=== PATIENT | female | born 1935 | race Caucasian/White ===

== ENCOUNTER 2017-10-16 11:17 | Emergency (ER) | payer MEDICARE ==
[~2017-10-16] VITALS: Ht 167.6 cm; Wt 59.0 kg
[~2017-10-16 11:17] MED LIST: AMIT25; AMIT50 PO; ASPI81CH PO; BACL10 PO; CARB50 PO; CELE200 PO; CIPR250 PO; CIPR500 PO; ESTR.75; FERSU220EL PO; HTN MEDICATION; HYDR1TAB94 PO; ISOMON20 PO; LEVOTHYROXINE PO; LEVSOD50 PO; LISI5 PO; NEBI5 PO; OXYB5 PO; PHENA200 PO; PRAV20 PO; THIA100 PO; VENL37.5ER PO; VITAMIN C PO; [UNRECOGNIZED DRUG - OTHER] PO
== END 2017-10-16 13:49 | disposition home or self-care (01) ==
LOC: ER 11:17
DX: S00.03XA Contusion of scalp, initial encounter (principal); S70.02XA Contusion of left hip, initial encounter; I48.91 Unspecified atrial fibrillation; Z86.73 Personal history of transient ischemic attack (TIA), and cerebral infarction without residual deficits; I10 Essential (primary) hypertension; Z88.8 Allergy status to other drugs, medicaments and biological substances; Z88.1 Allergy status to other antibiotic agents; Z91.018 Allergy to other foods; Z79.899 Other long term (current) drug therapy; Z79.82 Long term (current) use of aspirin; W01.198A Fall on same level from slipping, tripping and stumbling with subsequent striking against other object, initial encounter
CPT/HCPCS: 70450; 99284

== ENCOUNTER 2018-04-09 23:03 | Emergency (ER) | payer MEDICARE ==
[~2018-04-09] VITALS: Ht 167.6 cm; Wt 61.2 kg
[2018-04-10 00:40] LABS: Calcium, Ionized (POC) 1.09 mmol/L (1.10-1.46); Chloride (POC) 98 mmol/L (98-108); Creatinine (POC) 1.2 mg/dL (0.6-1.0); Glucose (ISTAT POC) 113 mg/dL (70-99); Hemoglobin (POC) 10.2 g/dL (12.0-16.0); Sodium (POC) 134 mmol/L (135-148); Total CO2 (POC) 27 mmol/L (21-32)
== END 2018-04-10 01:37 | disposition home or self-care (01) ==
LOC: ER 23:03
PROVIDERS: Emergency Medicine
DX: M47.892 Other spondylosis, cervical region (principal); M50.30 Other cervical disc degeneration, unspecified cervical region; E78.5 Hyperlipidemia, unspecified; I10 Essential (primary) hypertension; E03.9 Hypothyroidism, unspecified; F32.9 Major depressive disorder, single episode, unspecified; Z91.018 Allergy to other foods; Z88.1 Allergy status to other antibiotic agents; Z91.013 Allergy to seafood; Z79.899 Other long term (current) drug therapy; Z79.82 Long term (current) use of aspirin
CPT/HCPCS: 36415; 72040; 80047; 85014; 93005; 93010; 96360; 99284-25; J7030

== ENCOUNTER 2018-05-01 08:11 | Emergency (ER) | payer MEDICARE ==
[~2018-05-01] VITALS: Ht 167.6 cm; Wt 61.2 kg
[2018-05-01] MEDS ORDERED: Norco 5-325 Ta1 EACH PO (11:50)
[2018-05-01] MEDS ORDERED: LIDO700A20 TOP (11:50)
== END 2018-05-01 13:17 | disposition home or self-care (01) ==
LOC: ER 08:11
DX: M25.552 Pain in left hip (principal); Z88.1 Allergy status to other antibiotic agents; Z91.018 Allergy to other foods; Z91.013 Allergy to seafood; Z79.899 Other long term (current) drug therapy; Z79.82 Long term (current) use of aspirin; I10 Essential (primary) hypertension
CPT/HCPCS: 73502; 73552; 99283-25

== ENCOUNTER → 2020-02-17 | Outpatient (CLI) | payer MEDICARE ==
[~2020-02-17] MED LIST changes: +LIDO700A20 TOP; +Norco 5-325 Ta1 EACH PO
== END ==
LOC: LAB EV 14:18 → LAB SHORT 14:18
DX: N39.0 Urinary tract infection, site not specified (principal)
CPT/HCPCS: 87077; 87086; 87147; 87186

== ENCOUNTER → 2020-07-19 | Outpatient (CLI) | payer MEDICARE | END | disposition home or self-care (01) | LOC: PLD 15:36 → LAB SHORT 15:36 | DX: N39.0 Urinary tract infection, site not specified (principal) | CPT/HCPCS: 87077; 87086; 87186 ==

== ENCOUNTER → 2021-05-21 | Outpatient (CLI) | payer MEDICARE ==
[~2021-05-21] MED LIST changes: +AMLODIPINE BESYL5 MG PO; +ASCO500 PO; -ASPI81CH PO; +Aspir 8181 MG PO; +CEPH500 PO; +METO50ER PO; +SYNTHROID PO
== END | disposition home or self-care (01) ==
LOC: LAB 14:51 → LAB SHORT 14:51
DX: N39.0 Urinary tract infection, site not specified (principal)
CPT/HCPCS: 87077; 87086; 87186

== ENCOUNTER 2021-05-26 13:23 | Inpatient (IN) | payer MEDICARE ==
[~2021-05-26] VITALS: Ht 165.1 cm; Wt 57.0 kg
[~2021-05-26 13:23] MED LIST changes: -AMLODIPINE BESYL5 MG PO; -ASCO500 PO; -CEPH500 PO; -METO50ER PO; -SYNTHROID PO
[2021-05-26 14:31] LABS: BASOPHILS ABSOLUTE AUTO 0.19 K/mm3 (0.00-0.23); BASOPHILS PERCENT AUTO 1 % (0-2); EOSINOPHILS ABSOLUTE AUTO 0.03 K/mm3 (0.00-0.68); EOSINOPHILS PERCENT AUTO 0 % (0-6); Hematocrit 34.7 % (33.0-51.0); Hemoglobin 11.6 g/dL (11.5-16.0); IMMATURE GRAN ABSOLUTE AUTO 0.21 K/mm3 (0.00-0.10); IMMATURE GRAN PERCENT AUTO 1 % (0-1); LYMPHOCYTES ABSOLUTE AUTO 0.45 K/mm3 (0.84-5.20); LYMPHOCYTES PERCENT AUTO 2 % (21-46); MONOCYTES ABSOLUTE AUTO 0.56 K/mm3 (0.16-1.47); MONOCYTES PERCENT AUTO 3 % (4-13); Mean Corpuscular HGB 31.9 pg (26.0-34.0); Mean Corpuscular HGB Conc 33.4 g/dL (31.5-36.5); Mean Corpuscular Volume 95 fL (80-100); Mean Platelet Volume 11.9 fL (9.1-12.4); NEUTROPHILS ABSOLUTE AUTO 18.08 K/mm3 (1.96-9.15); NEUTROPHILS PERCENT AUTO 93 % (41-73); Platelet Count 320 K/mm3 (150-400); RDW Coefficient Variation 14.3 % (11.7-14.2); RDW Standard Deviation 50.4 fL (35.1-46.3); Red Blood Cell Count 3.64 M/mm3 (3.80-5.20); White Blood Cell Count 19.52 K/mm3 (4.00-11.30)
[2021-05-26 14:49] LABS: Bun/Creatinine Ratio 14.9 (12.0-20.0); Calcium, Blood 9.2 mg/dL (8.5-10.1); Creatinine, Blood 1.48 mg/dL (0.40-1.00); Potassium, Blood 4.8 mmol/L (3.5-5.5)
[2021-05-26 15:26] LABS: SARS-Cov-2 (COVID-19) PCR, MMC NEGATIVE (NEGATIVE)
[2021-05-26 15:45] LABS: Source, Urine Clean Catch
[2021-05-26 16:01] LABS: Appearance, Urine Clear (Clear); Bilirubin, Urine Neg (Neg); Blood, Urine Neg (Neg); Color, Urine Yellow (P-Yellow); Glucose Qualitative, Urine Neg (Neg); Ketones, Urine Neg (Neg); Leukocyte Esterase, Urine 2+ (Neg); Nitrite, Urine Neg (Neg); Protein, Urine 2+ (Neg); Specific Gravity, Urine 1.015 (1.003-1.022); Urobilinogen, Urine NORM (Normal)
[2021-05-26 16:58] LABS: Bacteria Few /hpf; Red Blood Cells, Urine 0-2 /hpf (0-2); Squamous Epithelial Cells Few /hpf (Few); Transitional Epithelial Cells Few /hpf (0-Rare); White Blood Cells, Urine 25-50 /hpf (0-5); Yeast/Fungi Urine Few /hpf
[2021-05-26] MEDS ORDERED: SYNTHROID PO (18:54)
[2021-05-26] MEDS ORDERED: METO50ER PO (18:54)
[2021-05-26] MEDS ORDERED: AMLODIPINE BESYL5 MG PO (18:54)
[2021-05-26] MEDS ORDERED: ASCO500 PO (18:55)
--- NOTE | 2021-05-26 23:00 | NUR ---
ADMISSION NOTE: RECEIVED PT FROM ER AAOX3. SHE DENIES ANY DISCOMFORT. RESP UNLABORED. PT C/O OF WEAKNESS. PLACED ON MONITOR SR. ORIENTED TO CALL LIGHT, ROOM, AND SURROUNDINGS. PO FLUIDS GIVEN AND TOLERATED WELL. NO N/V. SAFETY MEASURES IMPLEMENTED AND MAINTAINED. WILL CONTINUE TO MONITOR.
--- NOTE | 2021-05-27 04:52 | NUR ---
PT SLEPT WITHOUT DISTRESS. IVF INFUSING. SHE DENIES PAIN, NAUSEA, OR VOMITTING. PO FLUIDS GIVEN AND TOLERATED WELL. SAFETY PRECAUTIONS MAINTAINED. ATTENDS IN PLACE.
[2021-05-27] MEDS ORDERED: CEPH500 PO (13:57)
--- NOTE | 2021-05-27 17:12 | NUR ---
PT DISCHARGED WITH [id number] VIA WHEELCHAIR [place], BELONGINGS SENT HOME. PRIVATE CAR TO [place] TO HOME. PT AMBULATES TO W/[facility].
== END 2021-05-27 15:48 | disposition home or self-care (01) | DRG 872 ==
LOC: ER 13:23 → MEDS 18:29
PROVIDERS: Student in an Organized Health Care Education/Training Program; ADMIT Internal Medicine
DX: A41.9 Sepsis, unspecified organism (principal); N17.9 Acute kidney failure, unspecified; N12 Tubulo-interstitial nephritis, not specified as acute or chronic; E87.1 Hypo-osmolality and hyponatremia; Z20.822 Contact with and (suspected) exposure to COVID-19; I12.9 Hypertensive chronic kidney disease with stage 1 through stage 4 chronic kidney disease, or unspecified chronic kidney disease; E03.9 Hypothyroidism, unspecified; K90.0 Celiac disease; N18.30 Chronic kidney disease, stage 3 unspecified; E11.22 Type 2 diabetes mellitus with diabetic chronic kidney disease; E78.00 Pure hypercholesterolemia, unspecified; Z91.018 Allergy to other foods; Z88.0 Allergy status to penicillin; Z88.8 Allergy status to other drugs, medicaments and biological substances; Z90.49 Acquired absence of other specified parts of digestive tract; Z90.89 Acquired absence of other organs; Z90.710 Acquired absence of both cervix and uterus; Z90.722 Acquired absence of ovaries, bilateral; Z79.82 Long term (current) use of aspirin; Z79.899 Other long term (current) drug therapy
CPT/HCPCS: 36415; 74177; 80048; 81001; 82947; 83605; 83690; 83735; 85025; 87040; 93005; 93010; 96365; 99285-25; A9270; J0696; J1650; J7030; Q9967; U0004

== ENCOUNTER → 2021-10-12 | Outpatient (CLI) | payer OTHER ==
[~2021-10-12] MED LIST changes: +AMLODIPINE BESYL5 MG PO; +ASCO500 PO; +CEPH500 PO; +METO50ER PO; +SYNTHROID PO
== END | disposition home or self-care (01) ==
LOC: LAB 10:44 → LAB SHORT 10:44
DX: N39.0 Urinary tract infection, site not specified (principal)
CPT/HCPCS: 87077; 87086; 87186

== ENCOUNTER 2022-08-30 02:20 | Emergency (ER) | payer OTHER ==
[~2022-08-30] VITALS: Ht 165.1 cm; Wt 55.3 kg
[~2022-08-30 02:20] MED LIST changes: +AMLO5 PO; +CELEBREX200 MG PO; +HYDROCODONE-AC1 EA10 PO; +LEVSOD25 PO; +MULVITA PO; +Sprycel100 MG PO; +Vitamin B-12100 MCG PO; +XARELTO20 MG PO
[2022-08-30 04:05] LABS: Hematocrit 26.2 % (33.0-51.0); Hemoglobin 8.7 g/dL (11.5-16.0); Mean Corpuscular HGB 31.5 pg (26.0-34.0); Mean Corpuscular HGB Conc 33.2 g/dL (31.5-36.5); Mean Corpuscular Volume 95 fL (80-100); Mean Platelet Volume 10.6 fL (9.1-12.4); Platelet Count 134 K/mm3 (150-400); RDW Coefficient Variation 15.9 % (11.7-14.2); RDW Standard Deviation 53.7 fL (35.1-46.3); Red Blood Cell Count 2.76 M/mm3 (3.80-5.20); White Blood Cell Count 3.42 K/mm3 (4.00-11.30)
[2022-08-30 06:24] LABS: Bun/Creatinine Ratio 16.8 (12.0-20.0); Calcium, Blood 9.1 mg/dL (8.5-10.1); Creatinine, Blood 1.01 mg/dL (0.40-1.00); Magnesium, Blood 2.3 mg/dL (1.6-2.4); Potassium, Blood 3.7 mmol/L (3.5-5.5); Thyroid Stimulating Hormone 3.11 uIU/mL (0.360-4.800)
== END 2022-08-30 06:07 | disposition home or self-care (01) ==
LOC: ER 02:20
PROVIDERS: Student in an Organized Health Care Education/Training Program
DX: R51.9 Headache, unspecified (principal); R00.2 Palpitations; D64.9 Anemia, unspecified; F41.9 Anxiety disorder, unspecified; I12.9 Hypertensive chronic kidney disease with stage 1 through stage 4 chronic kidney disease, or unspecified chronic kidney disease; N18.30 Chronic kidney disease, stage 3 unspecified; Z88.1 Allergy status to other antibiotic agents; Z91.018 Allergy to other foods; Z79.899 Other long term (current) drug therapy; Z79.01 Long term (current) use of anticoagulants
CPT/HCPCS: 70450; 80048; 83735; 84443; 85027; A9270; J2765

== ENCOUNTER → 2022-09-01 | Outpatient (CLI) | payer OTHER | LOC: LAB SHORT 07:37 → PLD 07:37 | DX: D49.2 Neoplasm of unspecified behavior of bone, soft tissue, and skin (principal) | CPT/HCPCS: 88305 ==

== ENCOUNTER 2023-02-22 05:01 | Emergency (ER) | payer MEDICARE ==
[~2023-02-22] VITALS: Ht 165.1 cm; Wt 54.4 kg
[~2023-02-22 05:01] MED LIST changes: +AZIT250 PO; +BENZONATATE100 MG PO; +Cipro500 MG PO; +LOSA25 PO; +MIRALAX17 GM PO
[2023-02-22 08:10] LABS: Source, Urine Straight Cath
[2023-02-22 08:30] LABS: Appearance, Urine Clear (Clear); Bilirubin, Urine Neg (Neg); Blood, Urine Neg (Neg); Glucose Qualitative, Urine Neg (Neg); Ketones, Urine Neg (Neg); Leukocyte Esterase, Urine Neg (Neg); Nitrite, Urine Neg (Neg); Protein, Urine Neg (Neg); Specific Gravity, Urine 1.015 (1.003-1.022); Urobilinogen, Urine NORM (Normal)
[2023-02-22 08:35] LABS: Color, Urine Pale Yellow (P-Yellow)
[2023-02-22 09:52] LABS: BASOPHILS ABSOLUTE AUTO 0.19 K/mm3 (0.00-0.23); BASOPHILS PERCENT AUTO 1 % (0-2); EOSINOPHILS ABSOLUTE AUTO 0.25 K/mm3 (0.00-0.68); EOSINOPHILS PERCENT AUTO 2 % (0-6); Hematocrit 30.7 % (33.0-51.0); Hemoglobin 10.6 g/dL (11.5-16.0); IMMATURE GRAN PERCENT AUTO 1 % (0-1); LYMPHOCYTES ABSOLUTE AUTO 1.31 K/mm3 (0.84-5.20); LYMPHOCYTES PERCENT AUTO 8 % (21-46); MONOCYTES ABSOLUTE AUTO 0.72 K/mm3 (0.16-1.47); MONOCYTES PERCENT AUTO 4 % (4-13); Mean Corpuscular HGB Conc 34.5 g/dL (31.5-36.5); Mean Corpuscular Volume 96 fL (80-100); Mean Platelet Volume 10.8 fL (9.1-12.4); NEUTROPHILS PERCENT AUTO 85 % (41-73); Platelet Count 210 K/mm3 (150-400); RDW Coefficient Variation 13.2 % (11.7-14.2); RDW Standard Deviation 46.2 fL (35.1-46.3); Red Blood Cell Count 3.21 M/mm3 (3.80-5.20); White Blood Cell Count 16.67 K/mm3 (4.00-11.30)
[2023-02-22 10:15] LABS: Albumin, Blood 3.4 g/dL (3.4-5.0); Albumin/Globulin Ratio 0.9 (0.8-1.8); Bilirubin, Direct 0.1 mg/dL (0.0-0.3); Bilirubin, Indirect 0.4 mg/dL (0.1-0.7); Bilirubin, Total 0.5 mg/dL (0.1-1.0); Bun/Creatinine Ratio 24.5 (12.0-20.0); Calcium, Blood 8.7 mg/dL (8.5-10.1); Creatinine, Blood 0.98 mg/dL (0.40-1.00); Globulin, Blood 3.7 g/dL (2.2-4.0); Magnesium, Blood 2.1 mg/dL (1.6-2.4); Total Protein, Blood 7.1 g/dL (6.4-8.2)
[2023-02-22 11:04] VITALS: BP 135/68
== END 2023-02-22 11:05 | disposition home or self-care (01) ==
LOC: ER 05:01
PROVIDERS: Student in an Organized Health Care Education/Training Program
DX: R10.30 Lower abdominal pain, unspecified (principal); K59.00 Constipation, unspecified; D72.829 Elevated white blood cell count, unspecified; I10 Essential (primary) hypertension; E03.9 Hypothyroidism, unspecified; C92.10 Chronic myeloid leukemia, BCR/ABL-positive, not having achieved remission; Z91.013 Allergy to seafood; Z91.018 Allergy to other foods; Z79.899 Other long term (current) drug therapy
CPT/HCPCS: 51798; 74177; 80048; 80076; 81003; 83690; 83735; 85025; 99284-25; Q9967

== ENCOUNTER 2024-02-11 09:10 | Emergency (ER) | payer MEDICARE ==
[~2024-02-11] VITALS: Ht 165.1 cm; Wt 59.0 kg
[2024-02-11 11:15] VITALS: BP 149/53
== END 2024-02-11 11:43 | disposition home or self-care (01) ==
LOC: ER 09:10
DX: M25.552 Pain in left hip (principal); W18.30XA Fall on same level, unspecified, initial encounter; Z88.8 Allergy status to other drugs, medicaments and biological substances; Z79.899 Other long term (current) drug therapy; I10 Essential (primary) hypertension; E78.00 Pure hypercholesterolemia, unspecified; E03.9 Hypothyroidism, unspecified
CPT/HCPCS: 73502; 99283-25

== ENCOUNTER → 2024-02-14 | Outpatient (CLI) | payer MEDICARE | END | disposition home or self-care (01) | LOC: LAB SHORT 14:15 → LAB 14:15 | DX: N39.0 Urinary tract infection, site not specified (principal) | CPT/HCPCS: 87077; 87086; 87186 ==

== ENCOUNTER 2024-11-01 00:14 | Emergency (ER) | payer MEDICARE ==
[~2024-11-01] VITALS: Ht 165.1 cm; Wt 54.4 kg
[2024-11-01] MEDS ORDERED: FentaNYL Citrate 50 MCG/ML 2 ML Injection IV ONE (01:30)
[2024-11-01] MEDS ORDERED: FentaNYL Citrate 50 MCG/ML 2 ML Injection IV PRN (06:25)
[2024-11-01] MEDS ORDERED: OxyCODONE HCL 5 MG TAB PO PRN (08:25)
[2024-11-01] MEDS ORDERED: Gleevec400 MG PO (09:04)
[2024-11-01] MEDS ORDERED: HYDURE500 PO (09:05)
[2024-11-01] MEDS ORDERED: Sprycel100 MG (09:06)
[2024-11-01] MEDS ORDERED: Tasigna200 MG PO (09:06)
[2024-11-01] MEDS ORDERED: LEVOFLOXACIN750 MG PO (09:06)
[2024-11-01] MEDS ORDERED: B-100 COMPLEX100 MG PO (09:07)
[2024-11-01] MEDS ORDERED: Calcium Carbon500 MG PO (09:08)
[2024-11-01] MEDS ORDERED: LEVSOD25 PO (09:10)
[2024-11-01] MEDS ORDERED: AMLO5 (09:11)
[2024-11-01] MEDS ORDERED: Norco 5-325 Ta1 EACH PO (09:11)
[2024-11-01] MEDS ORDERED: Voltaren100 GM TOP (10:44)
[2024-11-01] MEDS ORDERED: AmLODIPine Besylate 5 MG Tab PO ONE (14:20)
[2024-11-01] MEDS ORDERED: Venlafaxine HCl 37.5 MG CapCR PO ONE (14:20)
[2024-11-01] MEDS ORDERED: Celecoxib 100 MG Cap PO SCH (14:20)
[2024-11-01] MEDS ORDERED: Vitamin B Complex 1 EA Softgel PO ONE (14:20)
[2024-11-01] MEDS ORDERED: HYDROcodone 5-APAP 325 TAB PO PRN (14:25)
[2024-11-01] MEDS ORDERED: Calcium Carbonate 1,250 MG TABLET PO ONE (14:25)
[2024-11-01] MEDS ORDERED: Cholecalciferol 400 unit Tab PO ONE (14:25)
[2024-11-01] MEDS ORDERED: Vitamin E 400 Intn'l Units Cap PO ONE (14:25)
[2024-11-01] MEDS ORDERED: Metoprolol Succinate 50 MG TABCR PO ONE (14:25)
[2024-11-01] MEDS ORDERED: Omega-3 Acid Ethyl Esters 1,000 MG CAP PO ONE (14:25)
[2024-11-01] MEDS ORDERED: Rivaroxaban 10 MG Tab PO ONE (14:25)
[2024-11-01] MEDS ORDERED: CELE200 (16:06)
[2024-11-01] MEDS ORDERED: B-1100 M1 PO (16:08)
[2024-11-02 13:00] VITALS: BP 132/76
== END 2024-11-02 13:05 ==
LOC: ER 00:14
DX: S42.211A Unspecified displaced fracture of surgical neck of right humerus, initial encounter for closed fracture (principal); S00.211A Abrasion of right eyelid and periocular area, initial encounter; E78.00 Pure hypercholesterolemia, unspecified; E03.9 Hypothyroidism, unspecified; I12.9 Hypertensive chronic kidney disease with stage 1 through stage 4 chronic kidney disease, or unspecified chronic kidney disease; N18.30 Chronic kidney disease, stage 3 unspecified; Z79.899 Other long term (current) drug therapy; W18.09XA Striking against other object with subsequent fall, initial encounter
CPT/HCPCS: 73030; 96374; 96376; 97110; 97161; 97530; 99285-25; A9270; J3010

== ENCOUNTER 2024-11-14 16:58 | Inpatient (IN) | payer OTHER, MEDICARE ==
[~2024-11-14] VITALS: Ht 165.1 cm; Wt 54.2 kg
[~2024-11-14 16:58] MED LIST changes: +AMLO5; +B-100 COMPLEX100 MG PO; +B-1100 M1 PO; +Calcium Carbon500 MG PO; +Gleevec400 MG PO; +HYDURE500 PO; +LEVOFLOXACIN750 MG PO; +Sprycel100 MG; +Tasigna200 MG PO; +Voltaren100 GM TOP
[2024-11-14 18:49] LABS: BASOPHILS ABSOLUTE AUTO 0.18 K/mm3 (0.00-0.23); BASOPHILS PERCENT AUTO 1 % (0-2); EOSINOPHILS PERCENT AUTO 1 % (0-6); Hematocrit 26.9 % (33.0-51.0); Hemoglobin 9.2 g/dL (11.5-16.0); IMMATURE GRAN ABSOLUTE AUTO 0.76 K/mm3 (0.00-0.10); IMMATURE GRAN PERCENT AUTO 4 % (0-1); LYMPHOCYTES ABSOLUTE AUTO 0.79 K/mm3 (0.84-5.20); LYMPHOCYTES PERCENT AUTO 4 % (21-46); MONOCYTES ABSOLUTE AUTO 1.45 K/mm3 (0.16-1.47); MONOCYTES PERCENT AUTO 8 % (4-13); Mean Corpuscular HGB 41.1 pg (26.0-34.0); Mean Corpuscular HGB Conc 34.2 g/dL (31.5-36.5); Mean Corpuscular Volume 120 fL (80-100); Mean Platelet Volume 10.3 fL (9.1-12.4); NEUTROPHILS ABSOLUTE AUTO 15.96 K/mm3 (1.96-9.15); NEUTROPHILS PERCENT AUTO 83 % (41-73); Platelet Count 460 K/mm3 (150-400); RDW Coefficient Variation 13.6 % (11.7-14.2); RDW Standard Deviation 60.3 fL (35.1-46.3); Red Blood Cell Count 2.24 M/mm3 (3.80-5.20); White Blood Cell Count 19.24 K/mm3 (4.00-11.30)
[2024-11-14 19:24] LABS: Albumin, Blood 2.9 g/dL (3.4-5.0); Albumin/Globulin Ratio 0.6 (0.8-1.8); Bilirubin, Total 0.9 mg/dL (0.1-1.0); Bun/Creatinine Ratio 37.3 (12.0-20.0); Calcium, Blood 9.4 mg/dL (8.5-10.1); Creatinine, Blood 1.5 mg/dL (0.40-1.00); Globulin, Blood 5.2 g/dL (2.2-4.0); Total Protein, Blood 8.1 g/dL (6.4-8.2)
[2024-11-14 19:32] LABS: CORONAVIRUS COVID-19 AG Negative (NEGATIVE); INFLUENZA A AG Positive (NEGATIVE); INFLUENZA B AG Negative (NEGATIVE)
[2024-11-14] MEDS ORDERED: Azithromycin 500 MG in NS 250 ML IV ONE (20:35)
[2024-11-14] MEDS ORDERED: NS 1,000 ML IV SCH ×3 (20:35→23:05)
[2024-11-14] MEDS ORDERED: CefTRIAXone Sodium 1,000 MG in NS 100 ML IV ONE (20:35)
[2024-11-14] MEDS ORDERED: Polyethylene Glycol 3350 17 gm PO PRN (22:25)
[2024-11-14] MEDS ORDERED: Ondansetron HCl 2 MG / ML 2ML Vial IV PRN (22:25)
[2024-11-14] MEDS ORDERED: Acetaminophen 325 MG TABLET PO PRN (22:25)
[2024-11-14] MEDS ORDERED: Oseltamvir Phosphate 30 MG Cap PO SCH (22:34)
[2024-11-14] MEDS ORDERED: Amlodipine Bes2.5 MG PO (22:56)
[2024-11-14 23:44] VITALS: BP 167/59
[2024-11-15] MEDS ORDERED: NS 250 ML IV PRN (01:25)
[2024-11-15 04:38] VITALS: BP 153/66
[2024-11-15 05:42] LABS: Hematocrit 23.4 % (33.0-51.0); Hemoglobin 7.8 g/dL (11.5-16.0); Mean Corpuscular HGB Conc 33.3 g/dL (31.5-36.5); Mean Corpuscular Volume 120 fL (80-100); Mean Platelet Volume 10.6 fL (9.1-12.4); Platelet Count 422 K/mm3 (150-400); RDW Coefficient Variation 13.5 % (11.7-14.2); RDW Standard Deviation 58.8 fL (35.1-46.3); Red Blood Cell Count 1.95 M/mm3 (3.80-5.20); White Blood Cell Count 16.17 K/mm3 (4.00-11.30)
[2024-11-15] MEDS ORDERED: Levothyroxine Sodium 0.025 MG Tab PO SCH (06:00)
[2024-11-15 06:02] LABS: BAND PERCENT MAN 1 % (0-8); BASOPHILS PERCENT MAN 0 % (0-2); EOSINOPHILS PERCENT MAN 0 % (0-6); LYMPHOCYTES ABSOLUTE MAN 0.32 K/mm3 (0.84-5.20); LYMPHOCYTES PERCENT MAN 2 % (21-46); METAMYELOCYTE ABSOLUTE MAN 0.16 K/mm3 (0.00-0.00); METAMYELOCYTE PERCENT MAN 1 % (0-0); MONOCYTES ABSOLUTE MAN 0.64 K/mm3 (0.16-1.47); MONOCYTES PERCENT MAN 4 % (4-13); MYELOCYTE ABSOLUTE MAN 0.16 K/mm3 (0.00-0.00); MYELOCYTE PERCENT MAN 1 % (0-0); NEUTROPHILS ABSOLUTE MAN 14.87 K/mm3 (1.96-9.15); SEG NEUTROPHILS PERCENT MAN 91 % (41-73); TOTAL CELLS COUNTED 100
[2024-11-15 06:22] LABS: Albumin, Blood 2.3 g/dL (3.4-5.0); Albumin/Globulin Ratio 0.5 (0.8-1.8); Bilirubin, Total 0.5 mg/dL (0.1-1.0); Bun/Creatinine Ratio 40.5 (12.0-20.0); Calcium, Blood 8.4 mg/dL (8.5-10.1); Creatinine, Blood 1.21 mg/dL (0.40-1.00); Globulin, Blood 4.2 g/dL (2.2-4.0); Potassium, Blood 3.9 mmol/L (3.5-5.5); Total Protein, Blood 6.5 g/dL (6.4-8.2)
--- NOTE | 2024-11-15 06:55 | NUR ---
SHIFT SUMMARY PT ARRIVED FROM ED APPROX 2330. ADMITTED FOR DYSPNEA R/T PNA AND FLU A. PT PLACED ON DROPLET ISOLATION PER PROTOCOL. SHE IS VERY WEAK AND IS NOT FULLY ORIENTED. SHE BELIEVED SHE WAS IN [place]. REMINDED PT SHE IS IN [place]. PT FEELS WARM, BUT IS NOT FEBRILE. SHE HAS BEEN SLEEPING PEACEFULLY. APPROX 0430, PT WOKE D/T IV OCCLUDING, AND COUGHING. PT CONTINUING TO COUGH WHILE AWAKE, HOWEVER SHE IS NOT COUGHING EFFECTIVELY, SO SHE IS UNABLE TO COUGH UP THE MUCUS IN HER THROAT.
[2024-11-15] MEDS ORDERED: Oseltamivir Phosphate 75 MG Cap PO SCH (07:00)
[2024-11-15 07:36] VITALS: BP 147/64
[2024-11-15] MEDS ORDERED: Enoxaparin 30 MG/0.3 ML SYR SC SCH (09:00)
[2024-11-15] MEDS ORDERED: Thiamine HCl 100 MG Tab PO SCH (09:00)
[2024-11-15] MEDS ORDERED: AmLODIPine Besylate 5 MG Tab PO SCH (09:00)
[2024-11-15] MEDS ORDERED: HYDROXYurea 500 MG Cap PO SCH ×2 (09:00)
[2024-11-15] MEDS ORDERED: OxyCODONE HCL 5 MG TAB PO PRN (10:25)
[2024-11-15 11:10] VITALS: BP 150/56
[2024-11-15 15:42] VITALS: BP 152/72
--- NOTE | 2024-11-15 17:35 | NUR ---
PT REPORTS FEELING BETTER THIS AFTERNOON. TREATED PAIN PER EMAR. PT STATES THIS HELPED MOVE AROUND, INCONT URINE AND BOWEL. PT RESTED FOR MAJORITY OF SHIFT. ORIENTED TO SELF. CALM AND COOPERATIVE WITH CARE.
[2024-11-15 19:46] VITALS: BP 161/60
[2024-11-15] MEDS ORDERED: CefTRIAXone Sodium 1,000 MG in NS 100 ML IV SCH (21:00)
[2024-11-15] MEDS ORDERED: Azithromycin 500 MG in NS 250 ML IV SCH (21:00)
[2024-11-16 01:03] VITALS: BP 165/60
[2024-11-16 04:14] VITALS: BP 171/66
[2024-11-16 05:46] LABS: BASOPHILS ABSOLUTE AUTO 0.16 K/mm3 (0.00-0.23); BASOPHILS PERCENT AUTO 1 % (0-2); EOSINOPHILS PERCENT AUTO 1 % (0-6); Hemoglobin 8.3 g/dL (11.5-16.0); IMMATURE GRAN PERCENT AUTO 7 % (0-1); LYMPHOCYTES ABSOLUTE AUTO 0.76 K/mm3 (0.84-5.20); LYMPHOCYTES PERCENT AUTO 4 % (21-46); MONOCYTES ABSOLUTE AUTO 0.73 K/mm3 (0.16-1.47); MONOCYTES PERCENT AUTO 4 % (4-13); Mean Corpuscular HGB 40.1 pg (26.0-34.0); Mean Corpuscular HGB Conc 33.2 g/dL (31.5-36.5); Mean Corpuscular Volume 121 fL (80-100); Mean Platelet Volume 10.6 fL (9.1-12.4); NEUTROPHILS ABSOLUTE AUTO 14.98 K/mm3 (1.96-9.15); NEUTROPHILS PERCENT AUTO 83 % (41-73); Platelet Count 442 K/mm3 (150-400); RDW Coefficient Variation 13.4 % (11.7-14.2); RDW Standard Deviation 59.2 fL (35.1-46.3); Red Blood Cell Count 2.07 M/mm3 (3.80-5.20); White Blood Cell Count 18.03 K/mm3 (4.00-11.30)
[2024-11-16 06:05] LABS: BAND PERCENT MAN 2 % (0-8); BASOPHILS ABSOLUTE MAN 0.36 K/mm3 (0.00-0.23); BASOPHILS PERCENT MAN 2 % (0-2); EOSINOPHILS PERCENT MAN 0 % (0-6); LYMPHOCYTES PERCENT MAN 5 % (21-46); METAMYELOCYTE ABSOLUTE MAN 0.54 K/mm3 (0.00-0.00); METAMYELOCYTE PERCENT MAN 3 % (0-0); MONOCYTES ABSOLUTE MAN 0.36 K/mm3 (0.16-1.47); MONOCYTES PERCENT MAN 2 % (4-13); NEUTROPHILS ABSOLUTE MAN 15.86 K/mm3 (1.96-9.15); SEG NEUTROPHILS PERCENT MAN 86 % (41-73); TOTAL CELLS COUNTED 100
[2024-11-16 06:09] LABS: Bun/Creatinine Ratio 35.2 (12.0-20.0); Calcium, Blood 8.7 mg/dL (8.5-10.1); Creatinine, Blood 0.91 mg/dL (0.40-1.00)
[2024-11-16 07:11] VITALS: BP 167/67
--- NOTE | 2024-11-16 08:15 | NUR ---
SHIFT SUMMARY AT START OF SHIFT, PT LYING IN BED WITH LIGHTS AND TV OFF. THIS RN ASKED HER IF SHE WAS IN PAIN AT THIS MOMENT. PT STATED I M ALRIGHT RIGHT NOW. PAIN MEDICATION OFFERED PER EMAR, PT DECLINES PAIN MEDICATION AT THIS TIME. PT HAS SLEPT THROUGH NIGHT WITHOUT COMPLAINT OR EPISODES. SHE HAS AN OCCASIONAL NON-PRODUCTIVE COUGH, THEN GOES BACK TO SLEEP. UPON ROUNDING, PT CONTINUED TO SLEEP PEACEFULLY. AT THE END OF SHIFT, THIS RN AND DAY SHIFT RN WERE MADE AWARE THAT PT HAD SOILED HER BEDDING, AND THIS HAD BEEN THE CASE FOR QUITE SOME TIME, PT HAD DRIED URINE RING AROUND HER. PT HAD NEW EXCORIATION ON HER RYAN AREA. PHOTOS TAKEN AND PLACED IN CHART.
[2024-11-16] MEDS ORDERED: HYDROXYurea 500 MG Cap PO SCH (09:00)
[2024-11-16 11:03] VITALS: BP 168/61
[2024-11-16] MEDS ORDERED: Oseltamvir Phosphate 30 MG Cap PO SCH (11:03)
[2024-11-16 11:28] VITALS: BP 153/64
[2024-11-16] MEDS ORDERED: Acetaminophen650 M1 PO (13:37)
[2024-11-16] MEDS ORDERED: OSEL75CA PO (13:39)
--- NOTE | 2024-11-16 14:14 | NUR ---
DISCHARGE NOTE: MEDICAL TRANSPORT ARRIVED VIA WHEELCHAIR TO TAKE PATIENT BACK TO [facility]. PAPERWORK GIVEN TO MEDICAL TRANSPORTER. PATIENT CHANGED, BELONGINGS COLLECTED, AND TRANSFERRED INTO WHEELCHAIR. IV AND TELE REMOVED. NO SIGNS OR SYMPTOMS OF DISTRESS WITH DISCHARGE.
== END 2024-11-16 14:18 | DRG 871 ==
LOC: ER 16:58 → MEDS 22:20
PROVIDERS: Registered Nurse; Student in an Organized Health Care Education/Training Program; ADMIT Internal Medicine
DX: A41.89 Other specified sepsis (principal); J10.01 Influenza due to other identified influenza virus with the same other identified influenza virus pneumonia; J96.01 Acute respiratory failure with hypoxia; C92.10 Chronic myeloid leukemia, BCR/ABL-positive, not having achieved remission; E87.1 Hypo-osmolality and hyponatremia; D75.839 Thrombocytosis, unspecified; D50.9 Iron deficiency anemia, unspecified; N18.32 Chronic kidney disease, stage 3b; D63.1 Anemia in chronic kidney disease; E03.9 Hypothyroidism, unspecified; E86.0 Dehydration; F03.90 Unspecified dementia, unspecified severity, without behavioral disturbance, psychotic disturbance, mood disturbance, and anxiety; I12.9 Hypertensive chronic kidney disease with stage 1 through stage 4 chronic kidney disease, or unspecified chronic kidney disease; S42.211D Unspecified displaced fracture of surgical neck of right humerus, subsequent encounter for fracture with routine healing; W01.0XXD Fall on same level from slipping, tripping and stumbling without subsequent striking against object, subsequent encounter; Z79.890 Hormone replacement therapy; Z79.1 Long term (current) use of non-steroidal anti-inflammatories (NSAID); Z96.642 Presence of left artificial hip joint
CPT/HCPCS: 36415; 71045; 80048; 80053; 82607; 82746; 83605; 84145; 85025; 87040; 87428-QW; 92610; 94762; 96365; 97162; 97530; 99285-25; A9270; J0456; J0696; J1650; J7030; J7050